=== PATIENT | male | born 1945 | race Caucasian/White ===

== ENCOUNTER 2016-09-03 14:47 | Inpatient (IN) | payer OTHER ==
[2016-09-03] MEDS ORDERED: NS 1,000 ML IV SCH (16:43)
[2016-09-03] MEDS ORDERED: ZOFRAN IV PRN ×2 (16:43→21:04)
[2016-09-03] MEDS ORDERED: NS 500 ML IV ONE (16:43)
[2016-09-03 17:33] LABS: BASO% 0.1 % (0.0-0.8); HEMATOCRIT 46.6 % (42.0-52.0); HEMOGLOBIN 16.4 g/dL (14.0-18.0); IMM GRAN# 0.08 X1000 (0.0-0.04); IMM GRAN% 0.4 % (0.0-0.5); LYMPH# 1.44 X1000 (1.2-3.4); LYMPH% 7.9 % (20.5-51.1); MANUAL DIFF NEEDED? YES; MCH 29.2 PG (27-31); MCHC 35.2 g/dL (33-37); MCV 83.1 FL (81-99); MONO# 1.31 X1000 (0.11-0.59); MONO% 7.2 % (1.7-9.3); MPV 11.4 FL (7.4-10.4); NEUT% 84.4 % (42.2-75.2); PLT 360 X1000 (130-400); RBC 5.61 XMIL (4.7-6.1)
[2016-09-03] MEDS ORDERED: HUMALOG SUBQ ONE (18:00)
[2016-09-03 18:25] LABS: CALCIUM 9.3 mg/dL (8.8-10.2); MAGNESIUM 2.8 mg/dL (1.5-2.7); POTASSIUM 4.4 mmol/L (3.5-5.1); TOTAL BILIRUBIN 0.28 mg/dL (0.20-1.00); TOTAL PROTEIN 7.5 g/dL (6.3-8.3)
[2016-09-03 18:30] LABS: BANDS 4 % (0-1); LYMPHS 8 % (21-51); MONO 4 % (1-9)
[2016-09-03 18:55] LABS: URINE CULTURE NEEDED? NO; URINE MICRO REVIEW NEEDED? NO; URINE SOURCE CLEAN CATCH
[2016-09-03 19:03] LABS: BILIRUBIN URINE NEGATIVE (NEGATIVE); BLOOD URINE SMALL (NEGATIVE); COLOR STRAW; GLUCOSE URINE >1000 mg/dL (NEGATIVE); LEUKOCYTES URINE NEGATIVE (NEGATIVE); NITRITE URINE NEGATIVE (NEGATIVE); PROTEIN URINE TRACE mg/dL (NEGATIVE); SP GRAVITY URINE 1.018; TURBIDITY URINE CLEAR (CLEAR); UROBILINOGEN URINE NORMAL (NORMAL)
[2016-09-03 19:06] LABS: UR EPITHELIAL CELLS <10 /HPF (<10); URINE BACTERIA NEGATIVE /HPF; URINE RBC <10 /HPF (<10); URINE WBC <10 /HPF (<10)
[2016-09-03] MEDS ORDERED: HUMULIN R 100 UNIT in NS 100 ML IV SCH (20:47)
[2016-09-03] MEDS ORDERED: MAGNESIUM SULFATE 2 GM/S.W.I. 50 ML IV PRN (21:04)
[2016-09-03] MEDS ORDERED: D50W SYRINGE IV PRN (21:04)
[2016-09-03] MEDS ORDERED: POTASSIUM CHLORIDE 10 MEQ in D5 NS 1,000 ML IV SCH (21:04)
[2016-09-03] MEDS: NS 1,000 ML IV SCH ×3 (21:04→23:16)
[2016-09-03] MEDS ORDERED: TYLENOL PO PRN (21:04)
[2016-09-03] MEDS: ROCEPHIN 1 GM/NS 50 ML IV SCH (22:03)
[2016-09-03] MEDS: LOVENOX SUBQ SCH (22:17)
[2016-09-04] MEDS ORDERED: CARDIZEM IV ONE (00:27)
[2016-09-04] MEDS ORDERED: CARDIZEM 100 MG/NS 100 ML IV SCH (00:30)
[2016-09-04] MEDS: NS 1,000 ML IV SCH ×2 (01:15→05:17)
--- NOTE | 2016-09-04 07:38 | Diag Imaging Result Document ---
PROCEDURE NAME: CHEST-PORTABLE - 09/03/2016 PORTABLE CHEST X-RAY: COMPARISON: None. FINDINGS: Lung volumes are severely low with bibasilar linear atelectasis. No infiltrates. No pneumothorax or large effusion. Heart size is grossly normal. IMPRESSION: Severely low lung volumes.
--- NOTE | 2016-09-04 08:15 | EKG Report ---
Test Performed on : 09/04/2016 00:06:27 AM Test Reason : RHYTHM CHANGE Blood Pressure : / mmHG Vent. Rate : 151 BPM Atrial Rate : 153 BPM P-R Int : 000 ms QRS Dur : 088 ms QT Int : 344 ms P-R-T Axes : 000 064 -78 degrees QTc Int : 545 ms Atrial fibrillation. with rapid ventricular response. ST & T wave abnormality, consider inferolateral ischemia Abnormal ECG No previous ECGs available Confirmed by Deion Talamantes DO ([id number]) on 09/07/2016 3:45:33 PM
[2016-09-04] MEDS ORDERED: HUMULIN R 100 UNIT in NS 100 ML IV SCH (08:16)
[2016-09-04] MEDS ORDERED: NS 1,000 ML IV SCH (08:17)
[2016-09-04 08:21] LABS: CALCIUM 8.3 mg/dL (8.8-10.2); MAGNESIUM 2.4 mg/dL (1.5-2.7); POTASSIUM 3.4 mmol/L (3.5-5.1)
[2016-09-04 08:34] LABS: HEMATOCRIT 42.2 % (42.0-52.0); HEMOGLOBIN 15.8 g/dL (14.0-18.0); MCH 30.2 PG (27-31); MCHC 37.4 g/dL (33-37); MCV 80.5 FL (81-99); MPV 10.7 FL (7.4-10.4); RBC 5.24 XMIL (4.7-6.1)
[2016-09-04] MEDS ORDERED: ZEBETA PO ONE (08:34)
[2016-09-04] MEDS: POTASSIUM CHLORIDE 40 MEQ in NS 250 ML IV PRN (09:05)
[2016-09-04] MEDS ORDERED: POTASSIUM CHLORIDE 10 MEQ in D5 NS 1,000 ML IV SCH (10:30)
[2016-09-04 15:24] LABS: ALLEN TEST YES; BE -4.4 mmoll (-3.0-3.0); BLOOD TYPE ARTERIAL; DRAW SITE R RADIAL; O2(CT) 18.1 mL/dL (15.0-23.0); PCO2(98.6) 30 mmHg (35-45); PO2(98.6) 64 mmHg (60-100); SAMPLE BLOOD; SAO2 93.2 % (95.0-100.0); THB 13.9 g/dL (11.5-17.4); pH(98.6) 7.41 (7.35-7.45)
[2016-09-04 15:25] LABS: MODALITY ROOM AIR
[2016-09-04 15:45] LABS: AGAP 12; BUN 43 mg/dL (8-22); CALCIUM 7.9 mg/dL (8.8-10.2); CHLORIDE 98 mmol/L (98-107); COSMO 276; POTASSIUM 3.6 mmol/L (3.5-5.1); SODIUM 130 mmol/L (136-145); TCO2 20 mmol/L (25-35)
--- NOTE | 2016-09-04 18:41 | Diag Imaging Result Document ---
PROCEDURE NAME: HEAD W/O CONTRAST - 09/04/2016 CT HEAD WITHOUT CONTRAST: FINDINGS: A dose reduction protocol was used. No comparison exam. There are mild atrophic changes. There are possibly some mild chronic microvascular ischemic changes. There is no indication of recent infarct, although acute infarcts may not be immediately visible. There is no evidence of hemorrhage, mass effect, midline shift, or hydrocephalus. IMPRESSION: No visible acute intracranial abnormality. No hemorrhage or mass effect. Verbal results provided to Dr. Willson at 6:28 p.m. on 09/04/2016.
[2016-09-04] MEDS: POTASSIUM CHLORIDE 10 MEQ in D5 NS 1,000 ML IV SCH (19:20)
[2016-09-04] MEDS: ROCEPHIN 1 GM/NS 50 ML IV SCH (19:36)
[2016-09-04] MEDS: LOVENOX SUBQ SCH (20:07)
[2016-09-04 22:09] LABS: BILIRUBIN URINE NEGATIVE (NEGATIVE); BLOOD URINE SMALL (NEGATIVE); CLARITY CLEAR (CLEAR); COLOR YELLOW; GLUCOSE URINE 500 mg/dL (NEGATIVE); LEUKOCYTES URINE NEGATIVE (NEGATIVE); NITRITE URINE NEGATIVE (NEGATIVE); PH URINE 6.5; PROTEIN URINE NEGATIVE (NEGATIVE); UROBILINOGEN URINE 0.2 EU/dL (0.2-1.0)
[2016-09-04 22:10] LABS: URINE SOURCE VOIDED
[2016-09-05 04:24] LABS: MANUAL DIFF NEEDED? NO
[2016-09-05 04:27] LABS: BASO% 0.1 % (0.0-0.8); EOS# 0.01 X1000 (0.0-0.7); EOS% 0.1 % (0.0-10.0); HEMATOCRIT 39.6 % (42.0-52.0); HEMOGLOBIN 14.3 g/dL (14.0-18.0); LYMPH% 7.6 % (20.5-51.1); MCH 29.7 PG (27-31); MCHC 36.1 g/dL (33-37); MCV 82.2 FL (81-99); MONO# 1.51 X1000 (0.11-0.59); MONO% 12.7 % (1.7-9.3); MPV 10.4 FL (7.4-10.4); NEUT% 79.5 % (42.2-75.2); PLT 219 X1000 (130-400); RBC 4.82 XMIL (4.7-6.1)
[2016-09-05 04:44] LABS: AGAP 12; BUN 25 mg/dL (8-22); CALCIUM 7.7 mg/dL (8.8-10.2); CHLORIDE 105 mmol/L (98-107); COSMO 284; POTASSIUM 3.4 mmol/L (3.5-5.1); SODIUM 139 mmol/L (136-145); TCO2 22 mmol/L (25-35)
[2016-09-05] MEDS: POTASSIUM CHLORIDE 10 MEQ in D5 NS 1,000 ML IV SCH (05:19)
[2016-09-05] MEDS: POTASSIUM CHLORIDE 40 MEQ in NS 250 ML IV PRN (05:35)
[2016-09-05] MEDS: ZEBETA PO SCH (08:11)
[2016-09-05] MEDS ORDERED: BLISTEX MEDICATED BERRY LIP BALM TOP PRN (08:16)
[2016-09-05] MEDS ORDERED: LASIX IV ONE (08:45)
[2016-09-05] MEDS ORDERED: INSULIN PEN NEEDLES ONE (09:30)
[2016-09-05] MEDS: MYCOSTATIN SUSP PO SCH ×4 (10:12→22:15)
[2016-09-05] MEDS: LEVEMIR SUBQ SCH ×2 (10:13→22:13)
[2016-09-05 14:07] LABS: BILIRUBIN URINE NEGATIVE (NEGATIVE); BLOOD URINE SMALL (NEGATIVE); CLARITY CLEAR (CLEAR); COLOR YELLOW; GLUCOSE URINE >=1000 mg/dL (NEGATIVE); PROTEIN URINE NEGATIVE (NEGATIVE); SP GRAVITY URINE 1.015; URINE SOURCE VOIDED; UROBILINOGEN URINE 0.2 EU/dL (0.2-1.0)
[2016-09-05 14:08] LABS: LEUKOCYTES URINE NEGATIVE (NEGATIVE); NITRITE URINE NEGATIVE (NEGATIVE)
[2016-09-05] MEDS: HUMALOG SUBQ SCH ×2 (15:49→22:17)
[2016-09-05 16:43] LABS: AGAP 15; BUN 16 mg/dL (8-22); CHLORIDE 95 mmol/L (98-107); COSMO 273; POTASSIUM 3.4 mmol/L (3.5-5.1); SODIUM 133 mmol/L (136-145); TCO2 23 mmol/L (25-35)
[2016-09-05] MEDS: ROCEPHIN 1 GM/NS 50 ML IV SCH (22:13)
[2016-09-05] MEDS: LOVENOX SUBQ SCH (22:13)
[2016-09-05] MEDS: ROZEREM PO SCH (22:14)
[2016-09-06 06:50] LABS: AGAP 16; BUN 17 mg/dL (8-22); CALCIUM 8.2 mg/dL (8.8-10.2); CHLORIDE 97 mmol/L (98-107); COSMO 281; POTASSIUM 3.3 mmol/L (3.5-5.1); SODIUM 138 mmol/L (136-145); TCO2 25 mmol/L (25-35)
[2016-09-06] MEDS: HUMALOG SUBQ SCH ×4 (07:20→22:05)
[2016-09-06] MEDS: ZEBETA PO SCH (08:50)
[2016-09-06] MEDS: LEVEMIR SUBQ SCH ×2 (08:50→17:14)
[2016-09-06] MEDS: MYCOSTATIN SUSP PO SCH ×4 (08:51→22:07)
[2016-09-06] MEDS: KLOR-CON PO SCH ×2 (12:16→22:04)
[2016-09-06] MEDS ORDERED: INSULIN PEN NEEDLES ONE (17:21)
[2016-09-06] MEDS: ROZEREM PO SCH (22:05)
[2016-09-06] MEDS: LOVENOX SUBQ SCH (22:05)
[2016-09-07] MEDS: LEVEMIR SUBQ SCH ×2 (06:54→16:51)
[2016-09-07] MEDS: HUMALOG SUBQ SCH ×4 (06:54→21:30)
[2016-09-07 07:04] LABS: MANUAL DIFF NEEDED? NO
[2016-09-07 07:10] LABS: BASO% 0.2 % (0.0-0.8); EOS# 0.02 X1000 (0.0-0.7); EOS% 0.2 % (0.0-10.0); HEMATOCRIT 40.6 % (42.0-52.0); IMM GRAN# 0.15 X1000 (0.0-0.04); IMM GRAN% 1.6 % (0.0-0.5); LYMPH# 1.33 X1000 (1.2-3.4); MCH 29.2 PG (27-31); MCHC 34.5 g/dL (33-37); MCV 84.8 FL (81-99); MONO# 1.15 X1000 (0.11-0.59); MONO% 12.1 % (1.7-9.3); MPV 10.4 FL (7.4-10.4); NEUT% 71.9 % (42.2-75.2); PLT 238 X1000 (130-400); RBC 4.79 XMIL (4.7-6.1)
[2016-09-07 07:27] LABS: AGAP 16; BUN 18 mg/dL (8-22); CALCIUM 8.1 mg/dL (8.8-10.2); CHLORIDE 97 mmol/L (98-107); COSMO 282; MAGNESIUM 2.2 mg/dL (1.5-2.7); POTASSIUM 3.3 mmol/L (3.5-5.1); SODIUM 138 mmol/L (136-145); TCO2 25 mmol/L (25-35)
[2016-09-07] MEDS: KLOR-CON PO SCH ×2 (08:32→20:14)
[2016-09-07] MEDS: MYCOSTATIN SUSP PO SCH ×4 (08:32→20:19)
[2016-09-07] MEDS: ZEBETA PO SCH (08:32)
[2016-09-07] MEDS ORDERED: KLOR-CON PO ONE (09:25)
--- NOTE | 2016-09-07 10:31 | PROGRESS NOTE ---
DATE: 09/07/2016 SUBJECTIVE: The patient is sitting up in the chair and eating breakfast. He seems to be consuming his non sugar free Jell-O and non sugar free pudding but not partaking of any of the proteins on his plate. We discussed his gait stability. We would like to get him more active but physical therapy is not available today in the hospital. We also discussed elements of the diabetic diet. The patient's was present. OBJECTIVE: Vital Signs: 97.3, 70, 20, 148/57. Physical Examination: Lungs: Clear to auscultation. Cardiovascular: Regular without appreciable murmur or gallop. Abdomen: Slightly protuberant. Extremities: Do not show peripheral edema. Laboratories: White cell count is 9.5, hematocrit 40.6. Potassium slightly low at 3.3, creatinine 0.6. Blood sugars have stabilized in the 200 or below range. Magnesium was normal. ASSESSMENT AND PLAN: 1. The patient's diabetic ketoacidosis has been addressed. He is off intravenous insulin. He is on Levemir twice daily and sliding scale Humalog. He seems to be eating well or at least it seems to be improving. 2. Leukocytosis has resolved on today's laboratory work. 3. I encouraged the patient to be out of bed, upright in the chair, and moving about the room with assistance. Physical therapy might not be a bad idea for him if he is going to be staying any other prolonged amount of time. 4. The patient's intravenous antibiotics have been discontinued. 5. We discussed diabetic diet at length.
[2016-09-07] MEDS: ROZEREM PO SCH (20:14)
[2016-09-07] MEDS: LOVENOX SUBQ SCH (21:30)
--- NOTE | 2016-09-08 06:05 | EKG Report ---
Test Performed on : 09/06/2016 1:38:14 PM Test Reason : post a-fib conversion Blood Pressure : / mmHG Vent. Rate : 073 BPM Atrial Rate : 073 BPM P-R Int : 144 ms QRS Dur : 090 ms QT Int : 404 ms P-R-T Axes : 016 045 020 degrees QTc Int : 445 ms Normal sinus rhythm. Normal ECG When compared with ECG of 04-SEP-2016 00:06, (Unconfirmed) Sinus rhythm. has replaced Atrial fibrillation. Vent. rate has decreased BY 78 BPM T wave inversion no longer evident in Anterolateral leads Confirmed by Deion Talamantes DO ([id number]) on 09/09/2016 7:51:41 AM
[2016-09-08] MEDS: HUMALOG SUBQ SCH (06:20)
[2016-09-08] MEDS: LEVEMIR SUBQ SCH (06:21)
[2016-09-08] MEDS ORDERED: LEVEMIR SUBQ SCH (08:06)
[2016-09-08] MEDS ORDERED: DIFLUCAN PO ONE (08:46)
[2016-09-08] MEDS: KLOR-CON PO SCH ×2 (09:20→21:09)
[2016-09-08] MEDS: GLUCOPHAGE PO SCH ×2 (09:20→21:09)
[2016-09-08] MEDS: MYCOSTATIN SUSP PO SCH ×4 (09:20→21:09)
[2016-09-08] MEDS: ZEBETA PO SCH (09:20)
[2016-09-08] MEDS: HUMALOG MIX 75/25 SUBQ SCH (16:30)
[2016-09-08] MEDS: ROZEREM PO SCH (21:09)
[2016-09-08] MEDS: LOVENOX SUBQ SCH (21:10)
[2016-09-09] MEDS: HUMALOG MIX 75/25 SUBQ SCH ×2 (06:53→18:08)
[2016-09-09] MEDS: ZEBETA PO SCH (09:42)
[2016-09-09] MEDS: DIFLUCAN PO SCH (09:42)
[2016-09-09] MEDS: MYCOSTATIN SUSP PO SCH ×4 (09:42→21:12)
[2016-09-09] MEDS: GLUCOPHAGE PO SCH ×2 (09:42→21:13)
[2016-09-09] MEDS: KLOR-CON PO SCH ×2 (09:42→21:12)
[2016-09-09] MEDS ORDERED: INSULIN PEN NEEDLES ONE (18:06)
[2016-09-09] MEDS: LOVENOX SUBQ SCH (21:13)
[2016-09-09] MEDS: ROZEREM PO SCH (21:13)
[2016-09-10] MEDS: MYCOSTATIN SUSP PO SCH ×2 (05:17→08:09)
[2016-09-10] MEDS: KLOR-CON PO SCH (08:10)
[2016-09-10] MEDS: GLUCOPHAGE PO SCH (08:10)
[2016-09-10] MEDS: ZEBETA PO SCH (08:10)
[2016-09-10] MEDS: DIFLUCAN PO SCH (08:10)
[2016-09-10] MEDS: HUMALOG MIX 75/25 SUBQ SCH (08:11)
[2016-09-10 08:25] VITALS: BP 128/60
[2016-09-10] MEDS ORDERED: HUMALOG MIX 75/25 SUBQ SCH ×2 (08:49→09:00)
[2016-09-10] MEDS ORDERED: ASPIRIN PO SCH (09:00)
--- NOTE | 2016-09-10 13:05 | DISCHARGE SUMMARY ---
ADMISSION DATE: 09/03/2016 DISCHARGE DATE: 09/10/2016 FINAL DIAGNOSES: 1. Diabetic ketoacidosis. 2. Long-standing presumably type 2 diabetes mellitus with hyperglycemia. 3. Transient paroxysmal atrial fibrillation. 4. Prerenal azotemia with dehydration. 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 He presented to my office with a 4-day history of nausea and vomiting, progressing to generalized weakness. He presented in a fairly disheveled state to my office accompanied by his as he was too weak to come in by himself. He has a long history of type 2 diabetes mellitus and has made minimal efforts in the past to follow a diabetic diet. Accordingly his hemoglobin A1c's have been 9 to 10.5 generally. He also seems somewhat obverse to medication and has resisted my attempts to get him to take a statin or RENETTA inhibitor. His blood pressure has been fine but his cholesterol has been above desirable and he only reluctantly takes the metformin. Approximately 6- 8 months ago. He was started on Invokana and has lost a few pounds of weight. PHYSICAL EXAMINATION: Vital signs: Revealed blood pressure 112/70, pulse of 92, temperature 96.1 degrees, pulse ox of 91%. General Appearance: Elderly, moderately obese gentleman who was not nearly as alert and well dressed as usual. Skin: Turgor was slightly reduced. Lungs: Clear. Neck: No JVD was noted. Cardiovascular: Exam was unremarkable. Abdomen: Soft, flat, nontender with no guarding or rebound tenderness. He has a small, easily reducible umbilical hernia. Neurologic: Showed no focal findings, although his speech was slightly slurred, seemingly from a dry mouth. He was noted to have somewhat deep respirations. HOSPITAL COURSE: She was made a direct admit from my office to the hospital. As soon as his admission lab work returned with a CO2 of 10, glucose of 771, BUN of 86, and creatinine of 2.1 it decided to move him to ICU for intravenous insulin and vigorous IV fluid replacement. He responded well over the next 36 hours. His blood sugar came down to between 125 and 200 and his acidosis improved markedly and subsequently resolved. His creatinine and BUN reduced at 16 and 0.7. He required moderate potassium supplementation. During his 1st night in the hospital he had an episode of paroxysmal atrial fibrillation and briefly was on a Cardizem drip. He converted spontaneously and was maintained on a beta emmy for several days but this was stopped at discharge. I feel the stress of his DKA was a major contributing factor and he is fairly low risk for recurrence. He was started on Humalog mixture 75/25 twice daily and his blood sugars improved and I have reduced this to 20 units in the morning and 10 units at suppertime at discharge. His C-peptide was low normal (1.3) and I am hoping that a repeat will be somewhat higher in several weeks due to resolution of glucotoxicity. I am cautiously optimistic that the Invokana was a contributing factor in his DKA and that he may produce enough endogenous insulin to eventually get off of supplemental insulin. He was seen by the dietitian and instructed in a 2000 calorie Mediterranean diet. His seems very interested and will help him adhere to this at home. He received extensive education in insulin technique and fingerstick blood sugars as he has not been doing these before. 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 DISCHARGE MEDICATIONS: Aspirin 81 mg daily, Diflucan 100 mg daily for presumed esophageal thrush, Humalog mix 75/25 20 units before breakfast and 10 units before supper, metformin 500 mg every morning and two 500 mg tablets every evening, Lipitor 20 mg daily. DISCHARGE INSTRUCTIONS: He is to stop taking Invokana. He is return to my office in 1 week for followup.
== END 2016-09-10 11:59 | disposition home health service (06) | DRG 638 ==
LOC: DIRADM 14:47 → 3N 16:34 → ICU 20:39 → 3N 09-05 16:36
PROVIDERS: ADMIT Internal Medicine; ATTEND Internal Medicine
DX: E13.10 Other specified diabetes mellitus with ketoacidosis without coma (principal); B37.81 Candidal esophagitis; I48.0 Paroxysmal atrial fibrillation; E78.5 Hyperlipidemia, unspecified; K42.9 Umbilical hernia without obstruction or gangrene; E66.9 Obesity, unspecified; D72.829 Elevated white blood cell count, unspecified; R79.89 Other specified abnormal findings of blood chemistry; Z68.27 Body mass index [BMI] 27.0-27.9, adult; Z79.84 Long term (current) use of oral hypoglycemic drugs; Z79.899 Other long term (current) drug therapy; Z82.3 Family history of stroke; Z82.49 Family history of ischemic heart disease and other diseases of the circulatory system
CPT/HCPCS: 70450; 71010; 80048; 80053; 81001; 81003; 82805; 82948; 83735; 84100; 84681; 85025; 85027; 87040; 87070; 87205; 93005; 93010; J0696; J1650; J1815; J1940; J3480; J7030; J7040; J7042; J7050; 97116-GP